=== PATIENT | female | born 1970 | race Caucasian/White ===

== ENCOUNTER 2017-12-07 02:28 | Emergency (ER) | payer OTHER ==
[~2017-12-07] VITALS: Ht 167.6 cm; Wt 122.5 kg
[~2017-12-07 02:28] MED LIST: ALBIPROI INH; ALBU90OI INH; ALBU90OI6; ALBU90OI6 INH; ALBU90OI61 INH; ALPR.25 PO; ASPI325 PO; ASPI81CH PO; ASPI81EC PO; ATOR40TA PO; ATOR80 PO; AZELASTINE137 MCG/0.; AZIT250 PO; Ativan1 MG PO; BUPR100 PO; BUPR100ER PO; BUPR150ER PO; Benefiber98 GM; CETI10 PO; CETI5; CETI5 PO; CIPR500 PO; CLON1 PO; CRUTCH4 USE; CYCL10 PO; DIAZ5 PO; DILT120 PO; DILT120ERA PO; DILT60ER PO; DOXY100 PO; Desyrel50 MG PO; ERGO400 PO; ERGO50000 PO; ESOM20; Esgic Tablet1 EACH PO; FIBE4P PO; FLUO10 PO; FLUSAL115; FLUSAL2505; FLUSAL5005 IH; FLUSAL5005 INH; FLUT.05NI; FLUT44OIA; FURO20 PO; GABA300 PO; GUAI600T33 PO; HYDACE10B PO; HYDACE5 PO; IBUP600 PO; IBUP800 PO; ISODIN20 PO; ISOMON30 PO; ISOMON60ER PO; Isosorbide Mono60 MG PO; LEVFLO500 PO; LISHYD1012 PO; LISI20 PO; LORA.5 PO; LORA1 PO; MECL25 PO; METO100 PO; METO100ER PO; MIRT30 PO; MULVITMINE PO; Micro-K10 MEQ; Micro-K10 MEQ PO; NAPR500 PO; NICO14TP TOP; NITR.4SL SL; NITR.6SL SL; NITRSPRAY SL; OMEP20ER PO; OMEP40CA12 PO; OXYACE5T PO; POTA10T PO; POTCHL10ER PO; PRED10 PO; PRED20 PO; PROM25 PO; Prednisone20 MG PO; RANI150 PO; ROSU10TA PO; RXHYDACE PO; SPACER IH; SUCR1 PO; SULTRIDS PO; SULTRISS PO; TRAM50 PO; TRAZ50 PO; Ventolin Soln3 ML INH; Zithromax250 MG PO; [UNRECOGNIZED DRUG - CODE]; [UNRECOGNIZED DRUG - OTHER]; [UNRECOGNIZED DRUG - OTHER] PO
== END 2017-12-07 03:58 | disposition home or self-care (01) ==
LOC: ER 02:28
DX: F43.0 Acute stress reaction (principal); F17.210 Nicotine dependence, cigarettes, uncomplicated; Z88.5 Allergy status to narcotic agent; Z88.0 Allergy status to penicillin; Z88.1 Allergy status to other antibiotic agents; Z88.8 Allergy status to other drugs, medicaments and biological substances; Z91.040 Latex allergy status; Z88.2 Allergy status to sulfonamides; Z79.899 Other long term (current) drug therapy; Z79.82 Long term (current) use of aspirin; Z79.52 Long term (current) use of systemic steroids; Z87.442 Personal history of urinary calculi; Z90.49 Acquired absence of other specified parts of digestive tract; Z98.51 Tubal ligation status
CPT/HCPCS: 99283

== ENCOUNTER 2017-12-07 05:56 | Emergency (ER) | payer OTHER ==
[~2017-12-07] VITALS: Ht 162.6 cm; Wt 136.1 kg
== END 2017-12-07 07:44 | disposition home or self-care (01) ==
LOC: ER 05:56
DX: S93.601A Unspecified sprain of right foot, initial encounter (principal); F41.9 Anxiety disorder, unspecified; F17.210 Nicotine dependence, cigarettes, uncomplicated; Z87.442 Personal history of urinary calculi; Z90.49 Acquired absence of other specified parts of digestive tract; Z98.51 Tubal ligation status; Z88.0 Allergy status to penicillin; Z88.5 Allergy status to narcotic agent; Z88.2 Allergy status to sulfonamides; Z88.1 Allergy status to other antibiotic agents; Z91.040 Latex allergy status; Z79.899 Other long term (current) drug therapy; Z79.52 Long term (current) use of systemic steroids; Z79.82 Long term (current) use of aspirin; W22.8XXA Striking against or struck by other objects, initial encounter
CPT/HCPCS: 73630; 99283

== ENCOUNTER → 2018-03-26 | Outpatient (CLI) | payer OTHER ==
[2018-03-26 17:49] LABS: BASOPHILS ABSOLUTE AUTO 0.04 K/mm3 (0.00-0.23); BASOPHILS PERCENT AUTO 1 % (0-2); EOSINOPHILS ABSOLUTE AUTO 0.09 K/mm3 (0.00-0.68); EOSINOPHILS PERCENT AUTO 1 % (0-6); Hemoglobin 13.6 g/dL (11.5-16.0); IMMATURE GRAN ABSOLUTE AUTO 0.05 K/mm3 (0.00-0.10); IMMATURE GRAN PERCENT AUTO 1 % (0-1); LYMPHOCYTES ABSOLUTE AUTO 2.94 K/mm3 (0.84-5.20); LYMPHOCYTES PERCENT AUTO 34 % (21-46); MONOCYTES ABSOLUTE AUTO 0.58 K/mm3 (0.16-1.47); MONOCYTES PERCENT AUTO 7 % (4-13); Mean Corpuscular HGB 29.3 pg (26.0-34.0); Mean Corpuscular HGB Conc 33.2 g/dL (31.5-36.5); Mean Corpuscular Volume 88 fL (80-100); Mean Platelet Volume 10.4 fL (9.1-12.4); NEUTROPHILS PERCENT AUTO 57 % (41-73); Platelet Count 248 K/mm3 (150-400); RDW Standard Deviation 48.8 fL (35.1-46.3); Red Blood Cell Count 4.64 M/mm3 (3.80-5.20)
[2018-03-26 18:03] LABS: Alanine Aminotransfer (ALT/SGP 76 U/L (12-78); Albumin, Blood 3.6 g/dL (3.4-5.0); Alk Phos 74 U/L (40-126); Anion Gap 8 mmol/L (6-16); Aspartate Aminotrans (AST/SGOT 43 U/L (12-37); Bilirubin, Total 0.4 mg/dL (0.1-1.0); Blood Urea Nitrogen 9 mg/dL (8-24); Bun/Creatinine Ratio 10.1 (12.0-20.0); CO2, Blood 30 mmol/L (21-32); Calcium, Blood 8.9 mg/dL (8.5-10.1); Chloride, Blood 103 mmol/L (98-108); Creatinine, Blood 0.89 mg/dL (0.40-1.00); Globulin, Blood 3.7 g/dL (2.2-4.0); Glomerular Filtration Rate >60 (60-); Glucose, Blood 142 mg/dL (70-99); Potassium, Blood 3.6 mmol/L (3.5-5.5); Sodium, Blood 141 mmol/L (136-145); Total Protein, Blood 7.3 g/dL (6.4-8.2)
[2018-03-26 18:05] LABS: Troponin I <0.017 ng/mL (0.000-0.040)
== END | disposition home or self-care (01) ==
LOC: LAB EV 17:42 → LAB SHORT 17:42
PROVIDERS: Physician Assistant
DX: Z53.9 Procedure and treatment not carried out, unspecified reason (principal)
CPT/HCPCS: 80053; 83880; 84484; 85025; 85379

== ENCOUNTER 2018-06-04 16:43 | Emergency (ER) | payer OTHER ==
[~2018-06-04] VITALS: Ht 162.6 cm; Wt 136.1 kg
[2018-06-04] MEDS ORDERED: Omeprazole20 M1 PO (18:20)
[2018-06-04 18:24] LABS: BASOPHILS ABSOLUTE AUTO 0.04 K/mm3 (0.00-0.23); BASOPHILS PERCENT AUTO 0 % (0-2); EOSINOPHILS ABSOLUTE AUTO 0.15 K/mm3 (0.00-0.68); EOSINOPHILS PERCENT AUTO 2 % (0-6); Hemoglobin 14.2 g/dL (11.5-16.0); IMMATURE GRAN ABSOLUTE AUTO 0.05 K/mm3 (0.00-0.10); IMMATURE GRAN PERCENT AUTO 1 % (0-1); LYMPHOCYTES ABSOLUTE AUTO 3.18 K/mm3 (0.84-5.20); LYMPHOCYTES PERCENT AUTO 35 % (21-46); MONOCYTES ABSOLUTE AUTO 0.74 K/mm3 (0.16-1.47); MONOCYTES PERCENT AUTO 8 % (4-13); Mean Corpuscular HGB 28.9 pg (26.0-34.0); Mean Corpuscular HGB Conc 32.3 g/dL (31.5-36.5); Mean Corpuscular Volume 90 fL (80-100); NEUTROPHILS ABSOLUTE AUTO 4.92 K/mm3 (1.96-9.15); NEUTROPHILS PERCENT AUTO 54 % (41-73); RDW Coefficient Variation 13.9 % (11.7-14.2); RDW Standard Deviation 45.6 fL (35.1-46.3); Red Blood Cell Count 4.91 M/mm3 (3.80-5.20); White Blood Cell Count 9.08 K/mm3 (4.00-11.30)
[2018-06-04 18:46] LABS: Alanine Aminotransfer (ALT/SGP 57 U/L (12-78); Albumin, Blood 3.5 g/dL (3.4-5.0); Albumin/Globulin Ratio 0.8 (0.8-1.8); Alk Phos 76 U/L (50-136); Anion Gap 6 mmol/L (6-16); Aspartate Aminotrans (AST/SGOT 37 U/L (12-37); Bilirubin, Total 0.3 mg/dL (0.1-1.0); Blood Urea Nitrogen 10 mg/dL (8-24); Bun/Creatinine Ratio 13.9 (12.0-20.0); CO2, Blood 25 mmol/L (21-32); Calcium, Blood 8.9 mg/dL (8.5-10.1); Chloride, Blood 107 mmol/L (98-108); Creatinine, Blood 0.72 mg/dL (0.40-1.00); Globulin, Blood 4.3 g/dL (2.2-4.0); Glomerular Filtration Rate >60 (60-); Glucose, Blood 133 mg/dL (70-99); Potassium, Blood 4.1 mmol/L (3.5-5.5); Sodium, Blood 138 mmol/L (136-145); Total Protein, Blood 7.8 g/dL (6.4-8.2)
[2018-06-04 18:57] LABS: Mean Platelet Volume 11.4 fL (9.1-12.4); Platelet Count 188 K/mm3 (150-400)
[2018-06-04] MEDS ORDERED: Norco 5-325 Ta1 EACH PO (20:31)
== END 2018-06-04 20:50 | disposition home or self-care (01) ==
LOC: ER 16:43
PROVIDERS: Emergency Medicine
DX: K43.9 Ventral hernia without obstruction or gangrene (principal); E11.9 Type 2 diabetes mellitus without complications; J44.9 Chronic obstructive pulmonary disease, unspecified; E66.01 Morbid (severe) obesity due to excess calories; E78.5 Hyperlipidemia, unspecified; F32.9 Major depressive disorder, single episode, unspecified; F17.210 Nicotine dependence, cigarettes, uncomplicated
CPT/HCPCS: 36415; 74176; 80053; 83690; 85025; 96374; 99284-25; J3010

== ENCOUNTER → 2019-01-18 | Outpatient (CLI) | payer OTHER ==
[~2019-01-18] MED LIST changes: +BUPR150ER; +Humalog100 UNIT/1; +INSULANPEN; +LORA.5; +Norco 5-325 Ta1 EACH PO; +Omeprazole20 M1 PO
== END | disposition home or self-care (01) ==
LOC: LAB SHORT 10:00 → LAB 10:00
DX: E11.65 Type 2 diabetes mellitus with hyperglycemia (principal)
CPT/HCPCS: 82043

== ENCOUNTER 2019-01-26 07:49 | Day surgery (SDC) | payer OTHER ==
[~2019-01-26] VITALS: Ht 162.6 cm; Wt 131.1 kg
--- NOTE | 2019-01-26 09:43 | NUR ---
01/26/19 0943 Carolyn Byrd USED DURING PROCEDURE.
--- NOTE | 2019-01-26 11:08 | NUR ---
01/26/19 1108 Carolyn Byrd PT. C/O SORE THROAT. PT. HAD DILITATION DONE. PT. INSTRUCTED IF BOTHERSOME TO EAT SOFT FOODS TO LIQUIDS BUT OTHERWISE SHE COULD EAT & DRINK WHAT SHE WANTED. PT ALSO INSTRUCTED SHE COULD SUCK ON LOZENGES FOR A SORE THROAT. DR. GALLEGOS IS AWARE OF HER SORE THROAT.
== END 2019-01-26 10:30 | disposition home or self-care (01) ==
LOC: ORSCSDS 07:49
PROVIDERS: Internal Medicine Gastroenterology
PROC: 0D758ZZ Dilation of Esophagus, Via Natural or Artificial Opening Endoscopic (ICD-10-PCS; principal; 2019-01-26 09:15)
PROC: 0DB68ZX Excision of Stomach, Via Natural or Artificial Opening Endoscopic, Diagnostic (ICD-10-PCS; principal; 2019-01-26 09:15)
DX: R13.10 Dysphagia, unspecified (principal); K21.9 Gastro-esophageal reflux disease without esophagitis; K22.2 Esophageal obstruction; K44.9 Diaphragmatic hernia without obstruction or gangrene; I10 Essential (primary) hypertension; J44.9 Chronic obstructive pulmonary disease, unspecified; E11.9 Type 2 diabetes mellitus without complications; F17.210 Nicotine dependence, cigarettes, uncomplicated; E66.01 Morbid (severe) obesity due to excess calories; Z68.42 Body mass index [BMI] 45.0-49.9, adult; Z79.4 Long term (current) use of insulin; Z79.899 Other long term (current) drug therapy; Z79.82 Long term (current) use of aspirin; Z99.81 Dependence on supplemental oxygen; I25.2 Old myocardial infarction
CPT/HCPCS: 82947; 88305; 88342; J2250; J7120

== ENCOUNTER 2020-02-28 16:53 | Emergency (ER) | payer OTHER ==
[~2020-02-28] VITALS: Ht 162.6 cm; Wt 136.1 kg
[2020-02-28] MEDS ORDERED: BUDE10.22 INH (17:40)
[2020-02-28] MEDS ORDERED: Lisinopril-Hct1 EAC4 PO (17:41)
[2020-02-28] MEDS ORDERED: Cartia Xt120 MG PO (17:41)
[2020-02-28] MEDS ORDERED: Humalog100 UNIT/1 SC (17:47)
[2020-02-28] MEDS ORDERED: Humulin N100 UNIT/1 SC (17:48)
[2020-02-28] MEDS ORDERED: POTA10T PO (17:49)
[2020-02-28] MEDS ORDERED: ASPI81CH PO (17:49)
[2020-02-28] MEDS ORDERED: FURO20 PO (17:49)
[2020-02-28] MEDS ORDERED: Lipitor80 MG PO (17:50)
[2020-02-28] MEDS ORDERED: Isosorbide Mono30 MG PO (17:50)
[2020-02-28] MEDS ORDERED: ATIVAN0.5 MG PO (17:51)
[2020-02-28] MEDS ORDERED: ZYRTEC10 M2 PO (17:51)
[2020-02-28] MEDS ORDERED: PRED20 PO (17:52)
[2020-02-28] MEDS ORDERED: BUPROPION PO (17:52)
[2020-02-28] MEDS ORDERED: Zithromax250 MG PO (18:12)
== END 2020-02-28 19:17 | disposition home or self-care (01) ==
LOC: ER 16:53
DX: J44.0 Chronic obstructive pulmonary disease with (acute) lower respiratory infection (principal); J20.9 Acute bronchitis, unspecified; J45.901 Unspecified asthma with (acute) exacerbation; I25.10 Atherosclerotic heart disease of native coronary artery without angina pectoris; G47.33 Obstructive sleep apnea (adult) (pediatric); E11.9 Type 2 diabetes mellitus without complications; F32.9 Major depressive disorder, single episode, unspecified; F41.0 Panic disorder [episodic paroxysmal anxiety]; F17.210 Nicotine dependence, cigarettes, uncomplicated; Z88.5 Allergy status to narcotic agent; Z88.0 Allergy status to penicillin; Z88.2 Allergy status to sulfonamides; Z91.040 Latex allergy status; Z88.8 Allergy status to other drugs, medicaments and biological substances; Z79.82 Long term (current) use of aspirin; Z79.899 Other long term (current) drug therapy; Z79.4 Long term (current) use of insulin
CPT/HCPCS: 36415; 71045; 93005; 93010; 96374; 99285-25; J1100

== ENCOUNTER 2021-01-26 08:55 | Day surgery (SDC) | payer OTHER ==
[~2021-01-26] VITALS: Ht 165.1 cm; Wt 141.2 kg
[~2021-01-26 08:55] MED LIST changes: +ATIVAN0.5 MG PO; +BUDE10.22 INH; +BUPROPION PO; +Cartia Xt120 MG PO; +Humalog100 UNIT/1 SC; +Humulin N100 UNIT/1 SC; +Isosorbide Mono30 MG PO; +Lipitor80 MG PO; +Lisinopril-Hct1 EAC4 PO; +ZYRTEC10 M2 PO
[2021-01-26] MEDS ORDERED: METHYLPREDNIS1000 M1 INH (09:25)
--- NOTE | 2021-01-26 09:37 | NUR ---
REPORT GIVEN TO DIAMOND MARTEL
--- NOTE | 2021-01-26 09:42 | NUR ---
assumed care and report from cristal brown. pt very anxious, flushed and moist. PROVIDED EMOTIONAL SUPPORT AND A RELAXING ENVIRONMENT. WILL CONTINUE TO MONITOR.
--- NOTE | 2021-01-26 10:01 | NUR ---
Ambulatory in Day SurgeryPatient states colon prep results clear. History, Chart, Medications and Allergies reviewed before start of procedure.Lungs clear T/O to Auscultation. Patient confirms NPO status and agrees with scheduled surgery.
--- NOTE | 2021-01-26 10:22 | NUR ---
01/26/21 1022 Ezequiel Abad History, Chart, Medications and Allergies reviewed before start of procedure.MONITOR INTACT WITH CONTINUOUS PULSE OXIMETRY AND INTERMITTENT BP.3-LEAD EKG REVIEWED WITH PHYSICIAN PRIOR TO START OF PROCEDURE.O2 VIA N/C INTACT THROUGHOUT SEDATION/PROCEDURE. See Anesthesia record.
--- NOTE | 2021-01-26 12:21 | NUR ---
REPORT FROM VALERIO BURROWS RN. PT WAKING WITHOUT DIFFICULTY. PROVIDED OJ FOR CONCERN OF DROPPING BS.
--- NOTE | 2021-01-26 12:37 | NUR ---
Patient up to Ambulate independently. Gait steady. Discharge instructions reviewed with patient. Patient verbalizes understanding. Copy given to patient to take home. Patient States Post-Procedure ride home has been arranged. Discharged via wheelchair to private car for ride home. ALL BELONINGS RETURNED TO PATIENT. PT STATES SHE DOESN'T FEEL LIKE HER BS IS LOW AT THIS TIME.
== END 2021-01-26 12:45 | disposition home or self-care (01) ==
LOC: ORSCMMR 08:55
PROVIDERS: Internal Medicine Gastroenterology
PROC: 0D758ZZ Dilation of Esophagus, Via Natural or Artificial Opening Endoscopic (ICD-10-PCS; principal; 2021-01-26 10:30)
PROC: 0DB98ZX Excision of Duodenum, Via Natural or Artificial Opening Endoscopic, Diagnostic (ICD-10-PCS; principal; 2021-01-26 10:30)
PROC: 0DBL8ZX Excision of Transverse Colon, Via Natural or Artificial Opening Endoscopic, Diagnostic (ICD-10-PCS; principal; 2021-01-26 10:30)
PROC: 0DBA8ZX Excision of Jejunum, Via Natural or Artificial Opening Endoscopic, Diagnostic (ICD-10-PCS; principal; 2021-01-26 10:30)
DX: R13.10 Dysphagia, unspecified (principal); K44.9 Diaphragmatic hernia without obstruction or gangrene; K22.8 Other specified diseases of esophagus; D12.3 Benign neoplasm of transverse colon; K57.30 Diverticulosis of large intestine without perforation or abscess without bleeding; K64.8 Other hemorrhoids; R19.4 Change in bowel habit; I10 Essential (primary) hypertension; J44.9 Chronic obstructive pulmonary disease, unspecified; E78.5 Hyperlipidemia, unspecified; G47.33 Obstructive sleep apnea (adult) (pediatric); E11.9 Type 2 diabetes mellitus without complications; Z79.82 Long term (current) use of aspirin; Z79.4 Long term (current) use of insulin; Z79.899 Other long term (current) drug therapy; F17.210 Nicotine dependence, cigarettes, uncomplicated
CPT/HCPCS: 82947; 88305; J2250; J2704; J7120

== ENCOUNTER 2021-10-12 11:35 | Emergency (ER) | payer OTHER ==
[~2021-10-12] VITALS: Ht 162.6 cm; Wt 143.8 kg
[~2021-10-12 11:35] MED LIST changes: +METHYLPREDNIS1000 M1 INH
[2021-10-12 12:38] LABS: BASOPHILS ABSOLUTE AUTO 0.04 K/mm3 (0.00-0.23); BASOPHILS PERCENT AUTO 1 % (0-2); EOSINOPHILS ABSOLUTE AUTO 0.18 K/mm3 (0.00-0.68); EOSINOPHILS PERCENT AUTO 2 % (0-6); Hematocrit 36.4 % (33.0-51.0); Hemoglobin 10.5 g/dL (11.5-16.0); IMMATURE GRAN ABSOLUTE AUTO 0.08 K/mm3 (0.00-0.10); IMMATURE GRAN PERCENT AUTO 1 % (0-1); LYMPHOCYTES ABSOLUTE AUTO 2.93 K/mm3 (0.84-5.20); LYMPHOCYTES PERCENT AUTO 38 % (21-46); MONOCYTES ABSOLUTE AUTO 0.63 K/mm3 (0.16-1.47); MONOCYTES PERCENT AUTO 8 % (4-13); Mean Corpuscular HGB 22.2 pg (26.0-34.0); Mean Corpuscular HGB Conc 28.8 g/dL (31.5-36.5); Mean Corpuscular Volume 77 fL (80-100); Mean Platelet Volume 9.9 fL (9.1-12.4); NEUTROPHILS ABSOLUTE AUTO 3.86 K/mm3 (1.96-9.15); NEUTROPHILS PERCENT AUTO 50 % (41-73); Platelet Count 275 K/mm3 (150-400); RDW Coefficient Variation 18.5 % (11.7-14.2); RDW Standard Deviation 51.4 fL (35.1-46.3); Red Blood Cell Count 4.73 M/mm3 (3.80-5.20); White Blood Cell Count 7.72 K/mm3 (4.00-11.30)
[2021-10-12 12:55] LABS: Alanine Aminotransfer (ALT/SGP 32 U/L (12-78); Albumin, Blood 2.9 g/dL (3.4-5.0); Albumin/Globulin Ratio 0.7 (0.8-1.8); Alk Phos 64 U/L (50-136); Anion Gap 7 mmol/L (6-16); Aspartate Aminotrans (AST/SGOT 19 U/L (12-37); Bilirubin, Total 0.2 mg/dL (0.1-1.0); Blood Urea Nitrogen 15 mg/dL (8-24); Bun/Creatinine Ratio 18.2 (12.0-20.0); CO2, Blood 28 mmol/L (21-32); Calcium, Blood 8.5 mg/dL (8.5-10.1); Chloride, Blood 108 mmol/L (98-108); Creatinine, Blood 0.83 mg/dL (0.40-1.00); Globulin, Blood 3.9 g/dL (2.2-4.0); Glomerular Filtration Rate >60 (60-); Glucose, Blood 192 mg/dL (70-99); Potassium, Blood 3.3 mmol/L (3.5-5.5); Sodium, Blood 143 mmol/L (136-145); Total Protein, Blood 6.8 g/dL (6.4-8.2)
[2021-10-12] MEDS ORDERED: Tessalon Perle100 MG PO (13:18)
[2021-10-12] MEDS ORDERED: Ventolin5 MG/1 ML INH (13:18)
[2021-10-12] MEDS ORDERED: DEXT30SU PO (13:18)
== END 2021-10-12 13:26 | disposition home or self-care (01) ==
LOC: ER 11:35
PROVIDERS: Physician Assistant
DX: R13.10 Dysphagia, unspecified (principal); J45.909 Unspecified asthma, uncomplicated; I25.10 Atherosclerotic heart disease of native coronary artery without angina pectoris; E11.9 Type 2 diabetes mellitus without complications; E78.5 Hyperlipidemia, unspecified; F17.210 Nicotine dependence, cigarettes, uncomplicated; Z88.5 Allergy status to narcotic agent; Z88.0 Allergy status to penicillin; Z91.040 Latex allergy status; Z88.2 Allergy status to sulfonamides; Z88.8 Allergy status to other drugs, medicaments and biological substances; Z79.4 Long term (current) use of insulin; Z79.82 Long term (current) use of aspirin; Z79.899 Other long term (current) drug therapy
CPT/HCPCS: 70491; 80053; 85025; 99284-25; Q9967

== ENCOUNTER → 2021-11-24 | Outpatient (CLI) | payer OTHER ==
[~2021-11-24] MED LIST changes: +DEXT30SU PO; +Tessalon Perle100 MG PO; +Ventolin5 MG/1 ML INH
== END | disposition home or self-care (01) ==
LOC: LAB SHORT 16:12
DX: L02.91 Cutaneous abscess, unspecified (principal)
CPT/HCPCS: 87070; 87075; 87205

== ENCOUNTER 2022-08-22 06:42 | Day surgery (SDC) | payer OTHER ==
[~2022-08-22] VITALS: Ht 162.6 cm; Wt 144.5 kg
[~2022-08-22 06:42] MED LIST changes: +AIRDUO RESPICL1 EAC4; +BUDESONIDE-FO10.2 G2; +FEROSUL325 M1 PO; +FLONASE ALLERG9.9 M2; +FLUT1DIS2 INH; +FLUTICASONE-SA1 EAC1 INH; +FLUTICASONE-VI1 EACH; +HUMALOG100 UNIT/1; +HUMULIN N100 UNIT/6; +MONT10T PO; +ZEGERID 40 MG1 EAC1 PO; +ZOLP5 PO
--- NOTE | 2022-08-22 07:27 | NUR ---
08/22/22 0727 AMY MELLO NOT SHOWING UP ON EMAR, PT COMPLETED AT THIS TIME.
--- NOTE | 2022-08-22 10:55 | NUR ---
08/22/22 1055 Wisam Savage SECOND SET OF VITAL SIGNS DID NOT SAVE. VITALS WNL.
== END 2022-08-22 08:45 | disposition home or self-care (01) ==
LOC: ORSCSDS 06:42
PROVIDERS: Ophthalmology
PROC: 08RJ3JZ Replacement of Right Lens with Synthetic Substitute, Percutaneous Approach (ICD-10-PCS; principal; 2022-08-22 08:00)
DX: H25.11 Age-related nuclear cataract, right eye (principal); I10 Essential (primary) hypertension; I25.10 Atherosclerotic heart disease of native coronary artery without angina pectoris; F17.210 Nicotine dependence, cigarettes, uncomplicated; G47.33 Obstructive sleep apnea (adult) (pediatric); J44.9 Chronic obstructive pulmonary disease, unspecified; E11.9 Type 2 diabetes mellitus without complications; F41.8 Other specified anxiety disorders; F43.10 Post-traumatic stress disorder, unspecified; Z79.4 Long term (current) use of insulin; Z79.899 Other long term (current) drug therapy; Z79.82 Long term (current) use of aspirin
CPT/HCPCS: 82947; J2001; J2250; J3010; J3301; J7040; V2632

== ENCOUNTER → 2022-09-10 | Outpatient (CLI) | payer OTHER ==
[2022-09-11 15:11] LABS: HPV 16 Negative (Negative); HPV 18 Negative (Negative); HPV OTHER HR TYPES Negative (Negative)
== END | disposition home or self-care (01) ==
LOC: LAB 10:30 → LAB SHORT 10:30
PROVIDERS: Family Medicine
DX: Z12.4 Encounter for screening for malignant neoplasm of cervix (principal)
CPT/HCPCS: 87624; G0123

== ENCOUNTER → 2023-01-04 | Outpatient (CLI) | payer OTHER ==
[2023-01-04 14:19] LABS: BASOPHILS ABSOLUTE AUTO 0.03 K/mm3 (0.00-0.23); BASOPHILS PERCENT AUTO 0 % (0-2); EOSINOPHILS ABSOLUTE AUTO 0.13 K/mm3 (0.00-0.68); EOSINOPHILS PERCENT AUTO 2 % (0-6); Hematocrit 42.4 % (33.0-51.0); Hemoglobin 13.1 g/dL (11.5-16.0); IMMATURE GRAN ABSOLUTE AUTO 0.03 K/mm3 (0.00-0.10); IMMATURE GRAN PERCENT AUTO 0 % (0-1); LYMPHOCYTES ABSOLUTE AUTO 2.58 K/mm3 (0.84-5.20); LYMPHOCYTES PERCENT AUTO 35 % (21-46); MONOCYTES ABSOLUTE AUTO 0.54 K/mm3 (0.16-1.47); MONOCYTES PERCENT AUTO 7 % (4-13); Mean Corpuscular HGB Conc 30.9 g/dL (31.5-36.5); Mean Corpuscular Volume 84 fL (80-100); Mean Platelet Volume 10.3 fL (9.1-12.4); NEUTROPHILS ABSOLUTE AUTO 4.02 K/mm3 (1.96-9.15); NEUTROPHILS PERCENT AUTO 55 % (41-73); Platelet Count 252 K/mm3 (150-400); RDW Coefficient Variation 17.1 % (11.7-14.2); RDW Standard Deviation 51.6 fL (35.1-46.3); Red Blood Cell Count 5.03 M/mm3 (3.80-5.20); White Blood Cell Count 7.33 K/mm3 (4.00-11.30)
[2023-01-04 14:22] LABS: Bun/Creatinine Ratio 14.1 (12.0-20.0); Calcium, Blood 9.1 mg/dL (8.5-10.1); Creatinine, Blood 0.78 mg/dL (0.40-1.00); Potassium, Blood 4.2 mmol/L (3.5-5.5)
== END | disposition home or self-care (01) ==
LOC: LAB 14:14 → LAB SHORT 14:14
PROVIDERS: Physician Assistant Medical
DX: R59.0 Localized enlarged lymph nodes (principal)
CPT/HCPCS: 80048; 85025

== ENCOUNTER 2023-12-07 13:00 | Emergency (ER) | payer OTHER ==
[~2023-12-07] VITALS: Ht 162.6 cm; Wt 141.5 kg
[2023-12-07 13:33] LABS: BASOPHILS ABSOLUTE AUTO 0.03 K/mm3 (0.00-0.23); BASOPHILS PERCENT AUTO 0 % (0-2); EOSINOPHILS ABSOLUTE AUTO 0.14 K/mm3 (0.00-0.68); EOSINOPHILS PERCENT AUTO 2 % (0-6); Hematocrit 39.3 % (33.0-51.0); Hemoglobin 11.5 g/dL (11.5-16.0); IMMATURE GRAN ABSOLUTE AUTO 0.02 K/mm3 (0.00-0.10); IMMATURE GRAN PERCENT AUTO 0 % (0-1); LYMPHOCYTES ABSOLUTE AUTO 2.43 K/mm3 (0.84-5.20); LYMPHOCYTES PERCENT AUTO 34 % (21-46); MONOCYTES ABSOLUTE AUTO 0.44 K/mm3 (0.16-1.47); MONOCYTES PERCENT AUTO 6 % (4-13); Mean Corpuscular HGB 22.3 pg (26.0-34.0); Mean Corpuscular HGB Conc 29.3 g/dL (31.5-36.5); Mean Corpuscular Volume 76 fL (80-100); Mean Platelet Volume 10.1 fL (9.1-12.4); NEUTROPHILS ABSOLUTE AUTO 4.15 K/mm3 (1.96-9.15); NEUTROPHILS PERCENT AUTO 58 % (41-73); Platelet Count 276 K/mm3 (150-400); RDW Coefficient Variation 16.2 % (11.7-14.2); RDW Standard Deviation 44.8 fL (35.1-46.3); Red Blood Cell Count 5.15 M/mm3 (3.80-5.20); White Blood Cell Count 7.21 K/mm3 (4.00-11.30)
[2023-12-07 13:58] LABS: Albumin, Blood 3.4 g/dL (3.4-5.0); Albumin/Globulin Ratio 0.8 (0.8-1.8); Bilirubin, Total 0.3 mg/dL (0.1-1.0); Bun/Creatinine Ratio 14.7 (12.0-20.0); Calcium, Blood 9.3 mg/dL (8.5-10.1); Creatinine, Blood 0.68 mg/dL (0.40-1.00); Globulin, Blood 4.1 g/dL (2.2-4.0); Potassium, Blood 4.2 mmol/L (3.5-5.5); Total Protein, Blood 7.5 g/dL (6.4-8.2)
[2023-12-07] MEDS ORDERED: HUMULIN N100 UNIT/6 SC (14:00)
[2023-12-07] MEDS ORDERED: TRAM50 PO (14:01)
[2023-12-07] MEDS ORDERED: INSULIN LI100 UNIT/5 (14:01)
[2023-12-07] MEDS ORDERED: Cetirizine HCl10 MG PO (14:01)
[2023-12-07] MEDS ORDERED: LISI5 PO (14:01)
[2023-12-07] MEDS ORDERED: CYCL10 PO (14:02)
[2023-12-07] MEDS ORDERED: LORAZEPAM0.5 MG PO (14:02)
[2023-12-07] MEDS ORDERED: METOPROLOL (14:04)
[2023-12-07] MEDS ORDERED: PRED20 PO (14:32)
[2023-12-07] MEDS ORDERED: HYDR1TAB94 PO (14:32)
[2023-12-07 15:00] VITALS: BP 132/69
== END 2023-12-07 15:13 | disposition home or self-care (01) ==
LOC: ER 13:00
PROVIDERS: Student in an Organized Health Care Education/Training Program
DX: M54.12 Radiculopathy, cervical region (principal); F17.210 Nicotine dependence, cigarettes, uncomplicated; J44.89 Other specified chronic obstructive pulmonary disease; G47.33 Obstructive sleep apnea (adult) (pediatric); I25.10 Atherosclerotic heart disease of native coronary artery without angina pectoris; E11.9 Type 2 diabetes mellitus without complications; E78.5 Hyperlipidemia, unspecified; Z79.51 Long term (current) use of inhaled steroids; Z79.4 Long term (current) use of insulin; Z79.899 Other long term (current) drug therapy; Z88.0 Allergy status to penicillin; Z88.1 Allergy status to other antibiotic agents; Z88.5 Allergy status to narcotic agent; Z88.2 Allergy status to sulfonamides; Z91.040 Latex allergy status
CPT/HCPCS: 71046; 80053; 84484; 85025; 93005; 93010; 96374; 96375; 99285-25; J2405; J3010

== ENCOUNTER 2023-12-15 02:38 | Day surgery (SDC) | payer OTHER ==
[~2023-12-15 02:38] MED LIST changes: +Cetirizine HCl10 MG PO; +HUMULIN N100 UNIT/6 SC; +HYDR1TAB94 PO; +INSULIN LI100 UNIT/5; +LISI5 PO; +LORAZEPAM0.5 MG PO; +METOPROLOL
[2023-12-15 14:50] VITALS: BP 150/90
[2023-12-15] MEDS ORDERED: OMEP20ER PO (16:27)
[2023-12-15] MEDS ORDERED: NITR.4SL SL (16:27)
== END 2023-12-15 15:59 | disposition home or self-care (01) ==
LOC: ATC 02:38
DX: D50.9 Iron deficiency anemia, unspecified (principal); Z88.5 Allergy status to narcotic agent; Z88.0 Allergy status to penicillin; Z88.1 Allergy status to other antibiotic agents; Z91.040 Latex allergy status
CPT/HCPCS: 96365; J2916

== ENCOUNTER 2023-12-22 01:53 | Day surgery (SDC) | payer OTHER ==
[2023-12-22] MEDS ORDERED: Sod Ferric Gluc Complx/Sucrose 125 MG in NS 100 ML IV SCH (06:00)
[2023-12-22 10:09] VITALS: BP 159/97
== END 2023-12-22 11:12 | disposition home or self-care (01) ==
LOC: ATC 01:53
DX: D50.9 Iron deficiency anemia, unspecified (principal)
CPT/HCPCS: 96365; J2916

== ENCOUNTER 2023-12-29 00:31 | Day surgery (SDC) | payer OTHER ==
[2023-12-29] MEDS ORDERED: Sod Ferric Gluc Complx/Sucrose 125 MG in NS 100 ML IV SCH (07:00)
[2023-12-29 10:13] VITALS: BP 172/90
[2023-12-29 11:24] VITALS: BP 153/91
== END 2023-12-29 11:25 | disposition home or self-care (01) ==
LOC: ATC 00:31
DX: D50.9 Iron deficiency anemia, unspecified (principal); G47.33 Obstructive sleep apnea (adult) (pediatric); J44.9 Chronic obstructive pulmonary disease, unspecified; F33.1 Major depressive disorder, recurrent, moderate; I10 Essential (primary) hypertension; E11.9 Type 2 diabetes mellitus without complications; F43.12 Post-traumatic stress disorder, chronic; G89.4 Chronic pain syndrome; Z72.0 Tobacco use; Z99.89 Dependence on other enabling machines and devices
CPT/HCPCS: 96365; J2916

== ENCOUNTER 2024-01-06 03:24 | Day surgery (SDC) | payer OTHER ==
[2024-01-06] MEDS ORDERED: Sod Ferric Gluc Complx/Sucrose 125 MG in NS 100 ML IV SCH (06:00)
[2024-01-06 15:10] VITALS: BP 141/92
== END 2024-01-06 16:10 | disposition home or self-care (01) ==
LOC: ATC 03:24
DX: D50.9 Iron deficiency anemia, unspecified (principal); G47.33 Obstructive sleep apnea (adult) (pediatric); J44.9 Chronic obstructive pulmonary disease, unspecified; F33.1 Major depressive disorder, recurrent, moderate; F43.12 Post-traumatic stress disorder, chronic; I10 Essential (primary) hypertension; E11.9 Type 2 diabetes mellitus without complications; Z79.899 Other long term (current) drug therapy; Z79.4 Long term (current) use of insulin; Z88.8 Allergy status to other drugs, medicaments and biological substances; Z91.040 Latex allergy status
CPT/HCPCS: 96365; J2916

== ENCOUNTER 2024-03-11 04:27 | Day surgery (SDC) | payer OTHER ==
[~2024-03-11 04:27] MED LIST changes: +ALPR1 PO; +Sod Ferric Gluc Complx/Sucrose 125 MG in NS 100 ML IV SCH
[2024-03-11 14:14] VITALS: BP 150/88
== END 2024-03-11 15:00 | disposition home or self-care (01) ==
LOC: ATC 04:27
DX: D50.9 Iron deficiency anemia, unspecified (principal); J44.9 Chronic obstructive pulmonary disease, unspecified; Z88.0 Allergy status to penicillin; Z79.899 Other long term (current) drug therapy
CPT/HCPCS: 96365; J2916

== ENCOUNTER 2024-03-17 03:21 | Day surgery (SDC) | payer OTHER ==
[~2024-03-17 03:21] MED LIST changes: -Sod Ferric Gluc Complx/Sucrose 125 MG in NS 100 ML IV SCH
[2024-03-17] MEDS ORDERED: Sod Ferric Gluc Complx/Sucrose 125 MG in NS 100 ML IV SCH (06:00)
[2024-03-17 08:43] VITALS: BP 149/83
== END 2024-03-17 09:33 | disposition home or self-care (01) ==
LOC: ATC 03:21
DX: D50.9 Iron deficiency anemia, unspecified (principal); I10 Essential (primary) hypertension; J44.9 Chronic obstructive pulmonary disease, unspecified; E11.9 Type 2 diabetes mellitus without complications; Z79.899 Other long term (current) drug therapy
CPT/HCPCS: 96365; J2916

== ENCOUNTER 2024-03-22 00:14 | Day surgery (SDC) | payer OTHER ==
[2024-03-22 10:10] VITALS: BP 161/94
== END 2024-03-22 11:18 | disposition home or self-care (01) ==
LOC: ATC 00:14
DX: D50.9 Iron deficiency anemia, unspecified (principal); I87.2 Venous insufficiency (chronic) (peripheral); I10 Essential (primary) hypertension; E11.9 Type 2 diabetes mellitus without complications; J44.9 Chronic obstructive pulmonary disease, unspecified; E66.9 Obesity, unspecified; Z79.4 Long term (current) use of insulin; Z79.899 Other long term (current) drug therapy; Z88.1 Allergy status to other antibiotic agents; Z88.8 Allergy status to other drugs, medicaments and biological substances; Z88.5 Allergy status to narcotic agent; Z88.0 Allergy status to penicillin; Z91.040 Latex allergy status; Z91.048 Other nonmedicinal substance allergy status; Z68.43 Body mass index [BMI] 50.0-59.9, adult

== ENCOUNTER 2024-05-04 05:24 | Day surgery (SDC) | payer OTHER ==
[~2024-05-04 05:24] MED LIST changes: +Sod Ferric Gluc Complx/Sucrose 125 MG in NS 100 ML IV SCH
[2024-05-04 09:22] VITALS: BP 161/94
== END 2024-05-04 10:10 | disposition home or self-care (01) ==
LOC: ATC 05:24
DX: D50.9 Iron deficiency anemia, unspecified (principal); G89.4 Chronic pain syndrome; F33.1 Major depressive disorder, recurrent, moderate; F43.12 Post-traumatic stress disorder, chronic; I10 Essential (primary) hypertension; E11.9 Type 2 diabetes mellitus without complications; G47.33 Obstructive sleep apnea (adult) (pediatric); Z99.89 Dependence on other enabling machines and devices; Z79.899 Other long term (current) drug therapy; Z91.040 Latex allergy status; Z88.8 Allergy status to other drugs, medicaments and biological substances; Z88.0 Allergy status to penicillin
CPT/HCPCS: 96365; J2916

== ENCOUNTER 2025-02-01 07:15 | Day surgery (SDC) | payer OTHER ==
[~2025-02-01 07:15] MED LIST changes: -Sod Ferric Gluc Complx/Sucrose 125 MG in NS 100 ML IV SCH
[2025-02-01] MEDS ORDERED: Sod Ferric Gluc Complx/Sucrose 125 MG in NS 100 ML IV SCH (07:20)
[2025-02-01 10:03] VITALS: BP 137/86
== END 2025-02-01 11:20 | disposition home or self-care (01) ==
LOC: ATC 07:15
DX: D50.0 Iron deficiency anemia secondary to blood loss (chronic) (principal); E11.9 Type 2 diabetes mellitus without complications; I10 Essential (primary) hypertension; J44.9 Chronic obstructive pulmonary disease, unspecified; F33.1 Major depressive disorder, recurrent, moderate; F17.210 Nicotine dependence, cigarettes, uncomplicated; Z79.4 Long term (current) use of insulin; Z79.899 Other long term (current) drug therapy; Z88.0 Allergy status to penicillin; Z88.1 Allergy status to other antibiotic agents; Z88.5 Allergy status to narcotic agent; Z91.040 Latex allergy status; Z90.49 Acquired absence of other specified parts of digestive tract
CPT/HCPCS: 96365; J2916

== ENCOUNTER 2025-02-11 04:27 | Day surgery (SDC) | payer OTHER ==
[~2025-02-11 04:27] MED LIST changes: +Sod Ferric Gluc Complx/Sucrose 125 MG in NS 100 ML IV SCH
[2025-02-11 10:17] VITALS: BP 184/94
== END 2025-02-11 11:19 | disposition home or self-care (01) ==
LOC: ATC 04:27
DX: D50.0 Iron deficiency anemia secondary to blood loss (chronic) (principal); I10 Essential (primary) hypertension; E11.9 Type 2 diabetes mellitus without complications; J44.9 Chronic obstructive pulmonary disease, unspecified; F17.210 Nicotine dependence, cigarettes, uncomplicated; Z88.1 Allergy status to other antibiotic agents; Z88.5 Allergy status to narcotic agent; Z88.0 Allergy status to penicillin; Z79.4 Long term (current) use of insulin; Z79.899 Other long term (current) drug therapy
CPT/HCPCS: 96365; J2916

== ENCOUNTER 2025-02-12 21:50 | Emergency (ER) | payer OTHER ==
[~2025-02-12] VITALS: Ht 162.6 cm; Wt 149.7 kg
[~2025-02-12 21:50] MED LIST changes: -LISI5 PO; -Sod Ferric Gluc Complx/Sucrose 125 MG in NS 100 ML IV SCH
[2025-02-12 22:27] LABS: BASOPHILS ABSOLUTE AUTO 0.04 K/mm3 (0.00-0.23); BASOPHILS PERCENT AUTO 1 % (0-2); EOSINOPHILS ABSOLUTE AUTO 0.15 K/mm3 (0.00-0.68); EOSINOPHILS PERCENT AUTO 2 % (0-6); Hematocrit 37.9 % (33.0-51.0); Hemoglobin 11.2 g/dL (11.5-16.0); IMMATURE GRAN ABSOLUTE AUTO 0.03 K/mm3 (0.00-0.10); IMMATURE GRAN PERCENT AUTO 0 % (0-1); LYMPHOCYTES ABSOLUTE AUTO 2.95 K/mm3 (0.84-5.20); LYMPHOCYTES PERCENT AUTO 37 % (21-46); MONOCYTES ABSOLUTE AUTO 0.55 K/mm3 (0.16-1.47); MONOCYTES PERCENT AUTO 7 % (4-13); Mean Corpuscular HGB 25.2 pg (26.0-34.0); Mean Corpuscular HGB Conc 29.6 g/dL (31.5-36.5); Mean Corpuscular Volume 85 fL (80-100); Mean Platelet Volume 10.7 fL (9.1-12.4); NEUTROPHILS ABSOLUTE AUTO 4.22 K/mm3 (1.96-9.15); NEUTROPHILS PERCENT AUTO 53 % (41-73); Platelet Count 224 K/mm3 (150-400); RDW Coefficient Variation 16.7 % (11.7-14.2); RDW Standard Deviation 51.4 fL (35.1-46.3); Red Blood Cell Count 4.44 M/mm3 (3.80-5.20); White Blood Cell Count 7.94 K/mm3 (4.00-11.30)
[2025-02-12 22:39] LABS: Albumin, Blood 3.2 g/dL (3.4-5.0); Albumin/Globulin Ratio 0.9 (0.8-1.8); Bilirubin, Total 0.3 mg/dL (0.1-1.0); Bun/Creatinine Ratio 15.4 (12.0-20.0); Calcium, Blood 8.8 mg/dL (8.5-10.1); Creatinine, Blood 0.85 mg/dL (0.40-1.00); Globulin, Blood 3.7 g/dL (2.2-4.0); Potassium, Blood 3.7 mmol/L (3.5-5.5); Total Protein, Blood 6.9 g/dL (6.4-8.2)
[2025-02-13] MEDS ORDERED: Albuterol 2.5 MG/3 ML VIAL INH SCH (00:15)
[2025-02-13] MEDS ORDERED: Ipratropium Bromide INH 0.02% 0.5 mg/2.5ML Vial INH SCH (00:15)
[2025-02-13 01:25] LABS: Influenza A, PCR NEGATIVE (NEGATIVE); Influenza B, PCR NEGATIVE (NEGATIVE); Resp Syncytial Virus, PCR NEGATIVE (NEGATIVE); SARS-Cov-2 (COVID-19) PCR, MMC NEGATIVE (NEGATIVE)
[2025-02-13] MEDS ORDERED: PRED20 PO (03:03)
[2025-02-13] MEDS ORDERED: MethylPREDNISolone Sod Succ 125 MG Vial IV ONE (03:05)
[2025-02-13 03:06] VITALS: BP 135/60
== END 2025-02-13 03:21 | disposition home or self-care (01) ==
LOC: ER 21:50
PROVIDERS: Student in an Organized Health Care Education/Training Program
DX: J44.1 Chronic obstructive pulmonary disease with (acute) exacerbation (principal); E11.9 Type 2 diabetes mellitus without complications; G47.33 Obstructive sleep apnea (adult) (pediatric); E78.5 Hyperlipidemia, unspecified; F17.210 Nicotine dependence, cigarettes, uncomplicated; Z88.5 Allergy status to narcotic agent; Z88.0 Allergy status to penicillin; Z88.1 Allergy status to other antibiotic agents; Z79.2 Long term (current) use of antibiotics; Z79.899 Other long term (current) drug therapy; Z79.84 Long term (current) use of oral hypoglycemic drugs
CPT/HCPCS: 0241U; 71045; 80053; 83880; 84484; 85025; 85379; 93005; 93010; 94644; 94664; 96374; 99285-25; J2919

== ENCOUNTER 2025-02-17 00:37 | Day surgery (SDC) | payer OTHER ==
[~2025-02-17 00:37] MED LIST changes: +LISI5 PO
[2025-02-17] MEDS ORDERED: Sod Ferric Gluc Complx/Sucrose 125 MG in NS 100 ML IV SCH (01:00)
[2025-02-17 09:57] VITALS: BP 141/83
== END 2025-02-17 10:50 | disposition home or self-care (01) ==
LOC: ATC 00:37
DX: D50.0 Iron deficiency anemia secondary to blood loss (chronic) (principal); I10 Essential (primary) hypertension; E11.9 Type 2 diabetes mellitus without complications; J44.9 Chronic obstructive pulmonary disease, unspecified; F17.210 Nicotine dependence, cigarettes, uncomplicated; Z79.4 Long term (current) use of insulin; Z79.899 Other long term (current) drug therapy
CPT/HCPCS: 96365; J2916

== ENCOUNTER 2025-02-24 04:10 | Day surgery (SDC) | payer OTHER ==
[~2025-02-24 04:10] MED LIST changes: -LISI5 PO
[2025-02-24] MEDS ORDERED: Sod Ferric Gluc Complx/Sucrose 125 MG in NS 100 ML IV SCH (06:00)
[2025-02-24 09:52] VITALS: BP 154/78
== END 2025-02-24 10:56 | disposition home or self-care (01) ==
LOC: ATC 04:10
DX: D50.0 Iron deficiency anemia secondary to blood loss (chronic) (principal); E11.9 Type 2 diabetes mellitus without complications; I10 Essential (primary) hypertension; J44.9 Chronic obstructive pulmonary disease, unspecified; F41.1 Generalized anxiety disorder; F43.12 Post-traumatic stress disorder, chronic; F17.210 Nicotine dependence, cigarettes, uncomplicated; Z79.4 Long term (current) use of insulin; Z79.899 Other long term (current) drug therapy; Z88.1 Allergy status to other antibiotic agents; Z88.0 Allergy status to penicillin; Z88.2 Allergy status to sulfonamides; Z88.5 Allergy status to narcotic agent; Z91.040 Latex allergy status; Z90.49 Acquired absence of other specified parts of digestive tract
CPT/HCPCS: 96365; J2916

== ENCOUNTER 2025-03-03 02:06 | Day surgery (SDC) | payer OTHER ==
[~2025-03-03 02:06] MED LIST changes: +Sod Ferric Gluc Complx/Sucrose 125 MG in NS 100 ML IV SCH
[2025-03-03 09:52] VITALS: BP 134/73
== END 2025-03-03 11:00 | disposition home or self-care (01) ==
LOC: ATC 02:06
DX: D50.0 Iron deficiency anemia secondary to blood loss (chronic) (principal); I10 Essential (primary) hypertension; E11.9 Type 2 diabetes mellitus without complications; J44.9 Chronic obstructive pulmonary disease, unspecified; F17.200 Nicotine dependence, unspecified, uncomplicated; Z88.1 Allergy status to other antibiotic agents; Z88.0 Allergy status to penicillin; Z88.5 Allergy status to narcotic agent; Z88.8 Allergy status to other drugs, medicaments and biological substances; Z79.4 Long term (current) use of insulin; Z79.899 Other long term (current) drug therapy
CPT/HCPCS: 96365; J2916

== ENCOUNTER 2025-04-20 00:59 | Day surgery (SDC) | payer OTHER ==
[~2025-04-20 00:59] MED LIST changes: -Sod Ferric Gluc Complx/Sucrose 125 MG in NS 100 ML IV SCH
[2025-04-20] MEDS ORDERED: Sod Ferric Gluc Complx/Sucrose 125 MG in NS 100 ML IV SCH (01:00)
[2025-04-20 16:00] VITALS: BP 155/78
== END 2025-04-20 17:02 | disposition home or self-care (01) ==
LOC: ATC 00:59
DX: D50.9 Iron deficiency anemia, unspecified (principal); E11.9 Type 2 diabetes mellitus without complications; I10 Essential (primary) hypertension; G47.33 Obstructive sleep apnea (adult) (pediatric); G89.4 Chronic pain syndrome; J44.9 Chronic obstructive pulmonary disease, unspecified; F17.210 Nicotine dependence, cigarettes, uncomplicated; Z79.4 Long term (current) use of insulin; Z79.899 Other long term (current) drug therapy; Z88.0 Allergy status to penicillin; Z88.1 Allergy status to other antibiotic agents; Z88.5 Allergy status to narcotic agent; Z91.040 Latex allergy status
CPT/HCPCS: 96365; J2916

== ENCOUNTER 2025-04-28 00:30 | Day surgery (SDC) | payer OTHER ==
[2025-04-28] MEDS ORDERED: Sod Ferric Gluc Complx/Sucrose 125 MG in NS 100 ML IV SCH (01:00)
[2025-04-28 10:50] VITALS: BP 151/78
== END 2025-04-28 11:57 | disposition home or self-care (01) ==
LOC: ATC 00:30
DX: D50.9 Iron deficiency anemia, unspecified (principal); E11.9 Type 2 diabetes mellitus without complications; I10 Essential (primary) hypertension; Z79.899 Other long term (current) drug therapy; Z79.4 Long term (current) use of insulin
CPT/HCPCS: 96365; J2916

== ENCOUNTER 2025-07-15 08:39 | Day surgery (SDC) | payer OTHER ==
[~2025-07-15] VITALS: Ht 162.6 cm; Wt 139.5 kg
[~2025-07-15 08:39] MED LIST changes: +ALBU2.5V5 INH; +ARTHRITIS PAIN150 GM TOP; +Albuterol S5 MG/1 ML INH; +BREZTRI AEROS10.7 GM INH; +HYDROCODONE-AC1 EA19 PO; -INSULIN LI100 UNIT/5; +INSULIN LI100 UNIT/5 SC; -Lipitor80 MG PO; +PANT20 PO
[2025-07-15 09:28] VITALS: BP 135/74
--- NOTE | 2025-07-15 09:30 | NUR ---
AMBULATORY INTO [facility]. PT REPORTS FEELING EXTREMELY ANXIOUS. HISTORY AND ALLERGIES REVIEWED. LUNGS WITH SCATTERED RHONCHI THAT CLEAR WITH COUGH. PT TOOK HER INHALER @ APROX. 0900. PT REPORTS DYSPNEA WITH EXERTION AND ORTHOPNEA. PT WEARS CPAP AT HOME WITH 2 LITER O2 BLEED IN. SATS 96 % ON RA. NO NOTED SOB AT REST. NPO STATUS CONFIRMED. BOWEL PREP CONFIRMED. PT DAUGHTER MAINE IS RIDE HOME TODAY.
[2025-07-15] MEDS ORDERED: Midazolam HCl 1MG / ML 2ML Vial ONE (10:02)
--- NOTE | 2025-07-15 10:26 | NUR ---
07/15/25 1026 Aiden Mills MONITOR INTACT WITH CONTINUOUS PULSE OXIMETRY, CONTINUOUS END TITAL CO2, 3-LEAD EKG AND INTERMITTENT BLOOD PRESSURE.O2 VIA POM INTACT THROUGHOUT SEDATION/PROCEDURE.
[2025-07-15 10:45] VITALS: BP 101/66
--- NOTE | 2025-07-15 11:10 | NUR ---
Discharge instructions reviewed with patient. Patient verbalizes understanding. Copy given to patient to take home. Patient States Post-Procedure ride home has been arranged. Discharged via wheelchair to private car for ride home.
== END 2025-07-15 11:10 | disposition home or self-care (01) ==
LOC: ORSCMMR 08:39 → ORD 10:00 → ORSCMMR 10:30 → ORD 10:30 → ORSCMMR 11:10
PROVIDERS: Internal Medicine Gastroenterology
PROC: 0DBM8ZX Excision of Descending Colon, Via Natural or Artificial Opening Endoscopic, Diagnostic (ICD-10-PCS; principal; 2025-07-15 10:30)
PROC: 0DJ08ZZ Inspection of Upper Intestinal Tract, Via Natural or Artificial Opening Endoscopic (ICD-10-PCS; principal; 2025-07-15 10:30)
DX: D50.9 Iron deficiency anemia, unspecified (principal); R19.4 Change in bowel habit; K63.5 Polyp of colon; K21.9 Gastro-esophageal reflux disease without esophagitis; I99.8 Other disorder of circulatory system; R13.10 Dysphagia, unspecified; J44.9 Chronic obstructive pulmonary disease, unspecified; Z79.4 Long term (current) use of insulin; E11.9 Type 2 diabetes mellitus without complications; Z68.43 Body mass index [BMI] 50.0-59.9, adult; I25.2 Old myocardial infarction; Z86.0101 Personal history of adenomatous and serrated colon polyps; G47.33 Obstructive sleep apnea (adult) (pediatric); F17.210 Nicotine dependence, cigarettes, uncomplicated; E66.9 Obesity, unspecified; Z79.899 Other long term (current) drug therapy
CPT/HCPCS: 82947; 88305; J2250; J2704; J7120

== ENCOUNTER 2025-09-05 12:19 | Day surgery (SDC) | payer OTHER ==
[2025-09-05] MEDS ORDERED: Sod Ferric Gluc Complx/Sucrose 125 MG in NS 100 ML IV SCH (12:35)
[2025-09-05 14:59] VITALS: BP 114/67
[2025-09-05] MEDS ORDERED: ISODIN20 PO (15:02)
== END 2025-09-05 15:53 | disposition home or self-care (01) ==
LOC: ATC 12:19
DX: D50.9 Iron deficiency anemia, unspecified (principal); E11.9 Type 2 diabetes mellitus without complications; G47.33 Obstructive sleep apnea (adult) (pediatric); I10 Essential (primary) hypertension; Z88.0 Allergy status to penicillin; Z91.040 Latex allergy status; Z88.8 Allergy status to other drugs, medicaments and biological substances; Z79.4 Long term (current) use of insulin; Z79.899 Other long term (current) drug therapy
CPT/HCPCS: 96365; J2916

== ENCOUNTER 2025-09-06 08:58 | Emergency (ER) | payer OTHER ==
[~2025-09-06] VITALS: Ht 162.6 cm; Wt 138.8 kg
[2025-09-06] MEDS ORDERED: NS 1,000 ML IV SCH (09:45)
[2025-09-06] MEDS ORDERED: Ondansetron HCl 2 MG / ML 2ML Vial IV ONE (09:50)
[2025-09-06] MEDS ORDERED: Ketorolac Tromethamine 30mg Vial IV ONE (09:50)
[2025-09-06] MEDS ORDERED: Diazepam 5 MG / ML 2ML SYR IV ONE (10:15)
[2025-09-06 10:17] LABS: BASOPHILS ABSOLUTE AUTO 0.05 K/mm3 (0.00-0.23); BASOPHILS PERCENT AUTO 1 % (0-2); EOSINOPHILS ABSOLUTE AUTO 0.12 K/mm3 (0.00-0.68); EOSINOPHILS PERCENT AUTO 2 % (0-6); Hematocrit 43.5 % (33.0-51.0); Hemoglobin 13.4 g/dL (11.5-16.0); IMMATURE GRAN ABSOLUTE AUTO 0.04 K/mm3 (0.00-0.10); IMMATURE GRAN PERCENT AUTO 1 % (0-1); LYMPHOCYTES ABSOLUTE AUTO 2.54 K/mm3 (0.84-5.20); LYMPHOCYTES PERCENT AUTO 32 % (21-46); MONOCYTES ABSOLUTE AUTO 0.62 K/mm3 (0.16-1.47); MONOCYTES PERCENT AUTO 8 % (4-13); Mean Corpuscular HGB Conc 30.8 g/dL (31.5-36.5); Mean Corpuscular Volume 84 fL (80-100); NEUTROPHILS ABSOLUTE AUTO 4.67 K/mm3 (1.96-9.15); NEUTROPHILS PERCENT AUTO 58 % (41-73); NRBC ABSOLUTE 0.00 K/mm3 (0.00-0.02); NRBC Auto 0.0 /100 WBC (0.0-0.2); Platelet Count 258 K/mm3 (150-400); RDW Coefficient Variation 15.8 % (11.7-14.2); RDW Standard Deviation 47.9 fL (35.1-46.3)
[2025-09-06] MEDS ORDERED: DiphenhydrAMINE HCl 50 MG/ML 1ML Vial IV ONE (10:20)
[2025-09-06 10:37] LABS: Source, Urine Clean Catch
[2025-09-06 10:41] LABS: Bilirubin, Urine Neg (Neg); Color, Urine Yellow (P-Yellow); Glucose Qualitative, Urine Neg (Neg); Ketones, Urine Neg (Neg); Leukocyte Esterase, Urine 1+ (Neg); Protein, Urine 2+ (Neg); Specific Gravity, Urine 1.015 (1.003-1.022); Urobilinogen, Urine NORM (Normal)
[2025-09-06 10:46] LABS: Alanine Aminotransfer (ALT/SGP 30.0 U/L (12-78); Albumin, Blood 3.6 g/dL (3.4-5.0); Albumin/Globulin Ratio 0.9 (0.8-1.8); Anion Gap 7.0 mmol/L (3-11); Aspartate Aminotrans (AST/SGOT 19.0 U/L (12-37); Bilirubin, Total 0.3 mg/dL (0.1-1.0); Blood Urea Nitrogen 7.0 mg/dL (8-24); CO2, Blood 28.0 mmol/L (21-32); Calcium, Blood 10.2 mg/dL (8.5-10.1); Chloride, Blood 105.0 mmol/L (98-108); Creatinine, Blood 0.75 mg/dL (0.40-1.00); Globulin, Blood 4.2 g/dL (2.2-4.0); Glucose, Blood 141.0 mg/dL (70-99); Potassium, Blood 4.1 mmol/L (3.5-5.5); Sodium, Blood 136.0 mmol/L (136-145); Total Protein, Blood 7.8 g/dL (6.4-8.2)
[2025-09-06 11:23] LABS: Red Blood Cells, Urine Not Seen /hpf (0-2)
[2025-09-06 11:26] VITALS: BP 147/73
[2025-09-06] MEDS ORDERED: Morphine Sulfate 4 MG/1 ML Injection IV ONE (11:35)
== END 2025-09-06 12:48 | disposition home or self-care (01) ==
LOC: ER 08:58
PROVIDERS: Student in an Organized Health Care Education/Training Program
DX: K43.9 Ventral hernia without obstruction or gangrene (principal); E11.65 Type 2 diabetes mellitus with hyperglycemia; J44.89 Other specified chronic obstructive pulmonary disease; G47.33 Obstructive sleep apnea (adult) (pediatric); I25.10 Atherosclerotic heart disease of native coronary artery without angina pectoris; I25.2 Old myocardial infarction; E78.5 Hyperlipidemia, unspecified; F17.210 Nicotine dependence, cigarettes, uncomplicated; E66.9 Obesity, unspecified; Z68.43 Body mass index [BMI] 50.0-59.9, adult; Z99.81 Dependence on supplemental oxygen; Z88.5 Allergy status to narcotic agent; Z88.0 Allergy status to penicillin; Z88.1 Allergy status to other antibiotic agents; Z91.040 Latex allergy status; Z88.2 Allergy status to sulfonamides; Z79.4 Long term (current) use of insulin; Z79.899 Other long term (current) drug therapy
CPT/HCPCS: 74177; 80053; 81001; 83690; 85025; 87086; 87147; 96361; 96374-59; 96375; 99284-25; J1885; J2270; J2405; J3360; J7030; Q9967

== ENCOUNTER 2025-09-07 02:42 | Day surgery (SDC) | payer OTHER ==
[2025-09-07] MEDS ORDERED: Sod Ferric Gluc Complx/Sucrose 125 MG in NS 100 ML IV SCH (06:00)
[2025-09-07 16:24] VITALS: BP 129/63
== END 2025-09-07 17:35 | disposition home or self-care (01) ==
LOC: ATC 02:42
DX: D50.9 Iron deficiency anemia, unspecified (principal); E11.9 Type 2 diabetes mellitus without complications; I10 Essential (primary) hypertension; G47.33 Obstructive sleep apnea (adult) (pediatric); Z91.040 Latex allergy status; Z88.0 Allergy status to penicillin; Z88.8 Allergy status to other drugs, medicaments and biological substances; Z79.4 Long term (current) use of insulin
CPT/HCPCS: 96365; J2916

== ENCOUNTER 2025-09-16 01:16 | Day surgery (SDC) | payer OTHER ==
[~2025-09-16 01:16] MED LIST changes: +Sod Ferric Gluc Complx/Sucrose 125 MG in NS 100 ML IV SCH
[2025-09-16 11:02] VITALS: BP 152/79
== END 2025-09-16 12:12 | disposition home or self-care (01) ==
LOC: ATC 01:16
DX: D50.9 Iron deficiency anemia, unspecified (principal); E11.9 Type 2 diabetes mellitus without complications; I10 Essential (primary) hypertension; J44.9 Chronic obstructive pulmonary disease, unspecified; Z88.8 Allergy status to other drugs, medicaments and biological substances; Z88.0 Allergy status to penicillin; Z91.040 Latex allergy status; Z79.4 Long term (current) use of insulin; Z79.899 Other long term (current) drug therapy
CPT/HCPCS: 99211; J2916

== ENCOUNTER 2025-09-30 10:34 | Emergency (ER) | payer OTHER ==
[~2025-09-30] VITALS: Ht 162.6 cm; Wt 140.2 kg
[~2025-09-30 10:34] MED LIST changes: -Sod Ferric Gluc Complx/Sucrose 125 MG in NS 100 ML IV SCH
[2025-09-30] MEDS ORDERED: Ondansetron HCl 2 MG / ML 2ML Vial IV ONE (11:00)
[2025-09-30] MEDS ORDERED: Morphine Sulfate 4 MG/1 ML Injection IV ONE (11:00)
[2025-09-30] MEDS ORDERED: LORazepam 2 MG/ML 1ML Injection IV ONE (11:15)
[2025-09-30 11:16] LABS: BASOPHILS ABSOLUTE AUTO 0.02 K/mm3 (0.00-0.23); BASOPHILS PERCENT AUTO 0 % (0-2); EOSINOPHILS ABSOLUTE AUTO 0.11 K/mm3 (0.00-0.68); EOSINOPHILS PERCENT AUTO 1 % (0-6); Hematocrit 47.7 % (33.0-51.0); Hemoglobin 15.0 g/dL (11.5-16.0); IMMATURE GRAN ABSOLUTE AUTO 0.03 K/mm3 (0.00-0.10); IMMATURE GRAN PERCENT AUTO 0 % (0-1); LYMPHOCYTES ABSOLUTE AUTO 2.65 K/mm3 (0.84-5.20); LYMPHOCYTES PERCENT AUTO 32 % (21-46); MONOCYTES ABSOLUTE AUTO 0.57 K/mm3 (0.16-1.47); MONOCYTES PERCENT AUTO 7 % (4-13); Mean Corpuscular HGB Conc 31.4 g/dL (31.5-36.5); Mean Corpuscular Volume 86 fL (80-100); NEUTROPHILS ABSOLUTE AUTO 5.00 K/mm3 (1.96-9.15); NEUTROPHILS PERCENT AUTO 60 % (41-73); NRBC ABSOLUTE 0.00 K/mm3 (0.00-0.02); NRBC Auto 0.0 /100 WBC (0.0-0.2); Platelet Count 213 K/mm3 (150-400); RDW Coefficient Variation 16.9 % (11.7-14.2); RDW Standard Deviation 53.4 fL (35.1-46.3)
[2025-09-30 11:17] LABS: Source, Urine Clean Catch
[2025-09-30 11:21] LABS: Bilirubin, Urine Neg (Neg); Color, Urine Yellow (P-Yellow); Glucose Qualitative, Urine Neg (Neg); Ketones, Urine Neg (Neg); Leukocyte Esterase, Urine Neg (Neg); Protein, Urine 2+ (Neg); Specific Gravity, Urine 1.015 (1.003-1.022); Urobilinogen, Urine NORM (Normal)
[2025-09-30 11:31] LABS: Red Blood Cells, Urine Not Seen /hpf (0-2); White Blood Cells, Urine 0-2 /hpf (0-5)
[2025-09-30 12:03] LABS: Alanine Aminotransfer (ALT/SGP 35.0 U/L (12-78); Albumin, Blood 3.9 g/dL (3.4-5.0); Albumin/Globulin Ratio 0.9 (0.8-1.8); Anion Gap 5.0 mmol/L (3-11); Aspartate Aminotrans (AST/SGOT 45.0 U/L (12-37); Bilirubin, Total 0.6 mg/dL (0.1-1.0); Blood Urea Nitrogen 12.0 mg/dL (8-24); CO2, Blood 27.0 mmol/L (21-32); Calcium, Blood 9.1 mg/dL (8.5-10.1); Chloride, Blood 108.0 mmol/L (98-108); Creatinine, Blood 0.64 mg/dL (0.40-1.00); Globulin, Blood 4.2 g/dL (2.2-4.0); Glucose, Blood 145.0 mg/dL (70-99); Potassium, Blood 4.9 mmol/L (3.5-5.5); Sodium, Blood 135.0 mmol/L (136-145); Total Protein, Blood 8.1 g/dL (6.4-8.2)
[2025-09-30] MEDS ORDERED: OXYACE7.5T PO (12:51)
[2025-09-30 13:29] VITALS: BP 111/89
== END 2025-09-30 13:30 | disposition home or self-care (01) ==
LOC: ER 10:34
PROVIDERS: Emergency Medicine
DX: R10.32 Left lower quadrant pain (principal); E11.9 Type 2 diabetes mellitus without complications; J44.89 Other specified chronic obstructive pulmonary disease; G47.33 Obstructive sleep apnea (adult) (pediatric); E78.5 Hyperlipidemia, unspecified; F17.210 Nicotine dependence, cigarettes, uncomplicated; Z79.899 Other long term (current) drug therapy; Z79.4 Long term (current) use of insulin; Z79.51 Long term (current) use of inhaled steroids; Z88.0 Allergy status to penicillin; Z88.1 Allergy status to other antibiotic agents; Z91.040 Latex allergy status; Z88.5 Allergy status to narcotic agent; Z88.8 Allergy status to other drugs, medicaments and biological substances
CPT/HCPCS: 74177; 80053; 81001; 83690; 85025; 96374-59; 99284-25; J2060; J2270; J2405; Q9967

== ENCOUNTER → 2025-10-24 | Outpatient (CLI) | payer OTHER ==
[~2025-10-24] MED LIST changes: +OXYACE7.5T PO
[2025-10-25 12:21] LABS: Stool Occult Bld Immuno 1 Negative (NEGATIVE)
[2025-10-27 15:02] LABS: PANCREATIC ELASTASE,FECAL 626 ug/g (>=100)
== END ==
LOC: LAB SHORT 14:19 → LAB 14:19
PROVIDERS: Physician Assistant Medical
DX: D50.9 Iron deficiency anemia, unspecified (principal); K21.9 Gastro-esophageal reflux disease without esophagitis
CPT/HCPCS: 82274; 82653